=== PATIENT | male | born 1960 | race Caucasian/White ===

== ENCOUNTER 2017-08-25 17:01 | Emergency (ER) | payer SELFPAY ==
[2017-08-25] MEDS ORDERED: HYDROcodone/Acetaminophen 5/325 mg Tablet ONE (17:19)
[2017-08-25] MEDS ORDERED: Ibuprofen 800 MG TAB ONE (17:19)
[2017-08-25 17:45] LABS: Anion Gap 16 mmol/L (10-20); BUN (Urea Nitrogen) 27 mg/dL (8.4-25.7); Calc. Creatinine Clearance 0 mL/min (70-130); Calcium 9.9 mg/dL (7.8-10.44); Carbon Dioxide 21 mmol/L (22-29); Chloride 104 mmol/L (98-107); Estimated GFR-MDRD 82; Glucose 122 mg/dL (70-105); Potassium 4.1 mmol/L (3.5-5.1); Sodium 137 mmol/L (136-145); Uric Acid 6.1 mg/dL (3.5-7.2)
[2017-08-25 17:47] LABS: Hemoglobin 15.4 g/dL (14.0-18.0); Mean Corpuscular HGB CONC 36.4 g/dL (32.0-36.0); Mean Corpuscular Hemoglobin 31.7 pg (27.0-31.0); Mean Corpuscular Volume 87.1 fl (80.0-94.0); Mean Platelet Volume 10.3 fL (7.4-10.4); Platelet Count 329 thou/uL (130-400); RBC Distribution Width 11.9 % (11.5-14.5); Red Blood Cell (RBC) Count 4.86 mill/uL (4.70-6.10); White Blood Cell (WBC) Count 16.8 thou/uL (4.8-10.8)
[2017-08-25 17:50] LABS: Eosinophils 7 % (0-10); Lymphocytes 36 % (21-51); MDiff Complete? YES; Monocytes 16 % (0-10); Neutrophil 41 % (42-75)
[2017-08-25] MEDS ORDERED: Dexamethasone 4 mg/ml Vial ONE (18:04)
--- NOTE | 2017-08-25 20:42 | RAD ---
RIGHT KNEE FOUR VIEWS: 08/25/17 Medial joint space narrowing and osteophytes are present, typical of osteoarthritis. A small joint ef fusion is suggested. No acute fracture was seen. There may be old trauma to the proximal fibula. IMPRESSION: Osteoarthritis but no acute findings other than perhaps a small joint effusion. POS: HOME
== END 2017-08-25 18:20 | disposition home or self-care (01) ==
LOC: BURERS 17:01
DX: M17.11 Unilateral primary osteoarthritis, right knee (principal); M23.306 Other meniscus derangements, unspecified meniscus, right knee; F17.210 Nicotine dependence, cigarettes, uncomplicated
CPT/HCPCS: 36415; 80048; 84550; 85025; 85379; J1100